=== PATIENT | male | born 1970 | race African-American/Black ===

== ENCOUNTER 2019-10-04 21:01 | Emergency (ER) | payer MEDICAID ==
[~2019-10-04] VITALS: Ht 175.3 cm; Wt 98.4 kg
[2019-10-04] MEDS ORDERED: FLUORESCEIN OPHTHALMIC 1 MG STRIP ONE ×2 (21:26→21:28)
[2019-10-04] MEDS ORDERED: PROPARACAINE OPHTH 0.5%, 15ML ONE ×2 (21:26→21:28)
[2019-10-04] MEDS ORDERED: PROPARACAINE OPHTH 0.5%, 15ML RIGHTEYE ONE (21:30)
[2019-10-04] MEDS ORDERED: FLUORESCEIN OPHTHALMIC 1 MG STRIP RIGHTEYE ONE (21:30)
[2019-10-04 22:38] VITALS: BP 115/80
== END 2019-10-04 22:54 | disposition home or self-care (01) ==
LOC: ED 21:31
DX: H10.021 Other mucopurulent conjunctivitis, right eye (principal); H54.7 Unspecified visual loss
CPT/HCPCS: 99283

== ENCOUNTER 2020-02-12 08:25 | Emergency (ER) | payer MEDICAID ==
[~2020-02-12] VITALS: Ht 175.3 cm; Wt 95.0 kg
[2020-02-12 08:32] VITALS: BP 136/84
--- NOTE | 2020-02-12 08:38 | NUR ---
[employer] [place] SUPPORT: CHART GIVEN TO PROVIDER TO GO SEE NEXT DUE TO CONCERNS OF AIRWAY. PT ABLE TO TALK IN FULL SENTENCES W/O DIFFICULTY, UVULA VISIBLY SWOLLEN, RESP EVEN AND UNLABORED, NADN.
--- NOTE | 2020-02-12 08:49 | NUR ---
PT HAS SWOLLEN UVULA AND TONSILS. AIRWAY CLEAR. ABLE TO TALK AND SWALLOW. NOT IN RESP DISTRESS. PT STATES HE HAS HAD THIS IN THE PAST. UNKNOWN IF REALTED TO FOOD ALLERGY, DID NOT EAT ANYTHING NEW. SYMPTOMS STARTED THIS AM .
[2020-02-12] MEDS ORDERED: DIPHENHYDRAMINE 25 MG CAPSULE ONE (08:58)
[2020-02-12] MEDS ORDERED: FAMOTIDINE 20 MG TABLET ONE (08:58)
[2020-02-12] MEDS ORDERED: DEXAMETHASONE 4 MG TABLET PO ONE (09:00)
[2020-02-12] MEDS ORDERED: FAMOTIDINE 20 MG TABLET PO ONE (09:00)
[2020-02-12] MEDS ORDERED: DIPHENHYDRAMINE 25 MG CAPSULE PO ONE (09:00)
[2020-02-12] MEDS ORDERED: DEXAMETHASONE 4 MG TABLET ONE (09:01)
--- NOTE | 2020-02-12 09:15 | NUR ---
MEDICATED PER ORDERS.
--- NOTE | 2020-02-12 09:47 | NUR ---
PT STATES HE IS FEELING BETTER
== END 2020-02-12 10:36 | disposition home or self-care (01) ==
LOC: ED 09:21
DX: T78.40XA Allergy, unspecified, initial encounter (principal); K12.2 Cellulitis and abscess of mouth; X58.XXXA Exposure to other specified factors, initial encounter; Y93.89 Activity, other specified; Y92.89 Other specified places as the place of occurrence of the external cause; Y99.8 Other external cause status
CPT/HCPCS: 99284; Q0163

== ENCOUNTER 2020-09-30 22:33 | Emergency (ER) | payer MEDICAID ==
[~2020-09-30] VITALS: Ht 175.3 cm; Wt 88.7 kg
[2020-09-30 23:39] LABS: HCT (SEDRATE) 48.8 % (39.2-51.8)
[2020-09-30 23:40] LABS: BASOPHILS % (AUTO) 1 % (0-1); EOSINOPHILS % (AUTO) 2 % (1-7); LYMPHOCYTES % (AUTO) 24 % (22-44); MEAN CORPUSCULAR HEMOGLOBIN 28.2 pg (27.5-34.5); MEAN CORPUSCULAR HGB CONC 33.7 g/dL (33.2-36.2); MEAN PLATELET VOLUME 7.3 fL (7.4-10.4); MONOCYTES % (AUTO) 13 % (2-9); NEUTROPHILS % (AUTO) 61 % (42-75); PLATELET COUNT 374 x10^3/uL (130-400); RED BLOOD COUNT 5.95 x10^6/uL (4.38-5.82); RED CELL DISTRIBUTION WIDTH 14.2 % (9.4-14.8)
[2020-09-30 23:52] LABS: ALBUMIN 3.6 g/dL (3.4-5.0); ANION GAP 4 mmol/L (5-15); CALCIUM 9.5 mg/dL (8.5-10.1); CHLORIDE 108 mmol/L (98-107)
[2020-09-30 23:59] LABS: ALANINE AMINOTRANSFERASE 47 U/L (12-78); ALKALINE PHOSPHATASE 322 U/L (45-117); BILIRUBIN,TOTAL 0.7 mg/dL (0.2-1.0); CREATININE 1.22 mg/dL (0.7-1.3); TOTAL PROTEIN 8.5 g/dL (6.4-8.2)
--- NOTE | 2020-10-01 00:01 | NUR ---
PT AMBULATORY FROM LOB C STEADY GAIT. HOLDING L ARM CLOSE TO BODY. CHANGING INTO GOWN.
[2020-10-01] MEDS ORDERED: KETOROLAC 30 MG/1 ML ONE (00:52)
[2020-10-01] MEDS ORDERED: HYDROmorphone 2 MG/ML, 1ML ONE (00:52)
[2020-10-01] MEDS ORDERED: HYDROmorphone 1 MG/ML, 1ML INJ IVPush PRN (01:00)
[2020-10-01] MEDS ORDERED: KETOROLAC 30 MG/1 ML IV ONE (01:00)
[2020-10-01] MEDS ORDERED: SODIUM CHLORIDE 0.9% 1,000ML IVBOLUS ONE (01:00)
--- NOTE | 2020-10-01 01:10 | NUR ---
PIV ESBT. MEDS PER MAR, & NSB INFUSING WELL. PT TO CT VIA CART.
--- NOTE | 2020-10-01 01:58 | NUR ---
REPORT GIVEN TO LISBETH APONTE
[2020-10-01 03:14] VITALS: BP 122/83
== END 2020-10-01 03:16 | disposition home or self-care (01) ==
LOC: ED 23:59
DX: L20.9 Atopic dermatitis, unspecified (principal)
CPT/HCPCS: 36415; 72125; 73030; 73200; 80053; 85025; 85651; 86140; 93005; 96361; 96374; 96375; 99285; J1170; J1885; J7030

== ENCOUNTER 2020-10-09 04:39 | Emergency (ER) | payer MEDICAID ==
[~2020-10-09] VITALS: Ht 175.3 cm; Wt 87.5 kg
[2020-10-09] MEDS ORDERED: MORPHINE SULFATE 4 MG/ML, 1ML ONE ×2 (05:20→07:36)
[2020-10-09] MEDS ORDERED: FAMOTIDINE 20 MG/2 ML ONE (05:20)
[2020-10-09] MEDS ORDERED: ONDANSETRON 2MG/ML, 2ML ONE ×2 (05:20→07:36)
[2020-10-09] MEDS ORDERED: SODIUM CHLORIDE 0.9% 1,000 ML IV ONE (05:30)
[2020-10-09] MEDS ORDERED: SODIUM CHLORIDE FLUSH 10ML SYR IVF ONE (05:30)
[2020-10-09] MEDS ORDERED: SODIUM CHLORIDE 0.9% 1,000ML IVBOLUS ONE (05:30)
[2020-10-09] MEDS ORDERED: FAMOTIDINE 20 MG/2 ML IVPush ONE (05:30)
[2020-10-09] MEDS ORDERED: ONDANSETRON 2MG/ML, 2ML IVPush ONE (05:30)
[2020-10-09] MEDS: MORPHINE SULFATE 4 MG/ML, 1ML IVPush PRN ×2 (05:33→07:38)
[2020-10-09 05:58] LABS: BASOPHILS % (AUTO) 1 % (0-1); EOSINOPHILS % (AUTO) 1 % (1-7); LYMPHOCYTES % (AUTO) 12 % (22-44); MEAN CORPUSCULAR HEMOGLOBIN 28.2 pg (27.5-34.5); MEAN CORPUSCULAR HGB CONC 34.2 g/dL (33.2-36.2); MEAN PLATELET VOLUME 7.2 fL (7.4-10.4); MONOCYTES % (AUTO) 9 % (2-9); NEUTROPHILS % (AUTO) 77 % (42-75); PLATELET COUNT 316 x10^3/uL (130-400); RED CELL DISTRIBUTION WIDTH 14.5 % (9.4-14.8)
[2020-10-09 06:00] LABS: ALANINE AMINOTRANSFERASE 21 U/L (12-78); ALBUMIN 3.1 g/dL (3.4-5.0); ANION GAP 8 mmol/L (5-15); CALCIUM 9.4 mg/dL (8.5-10.1); CHLORIDE 104 mmol/L (98-107); CREATININE 1.17 mg/dL (0.7-1.3)
[2020-10-09 06:02] LABS: ALKALINE PHOSPHATASE 157 U/L (45-117); BILIRUBIN,TOTAL 0.4 mg/dL (0.2-1.0); TOTAL PROTEIN 7.2 g/dL (6.4-8.2)
[2020-10-09 06:02] LABS: MICROSCOPIC INDICATED
[2020-10-09] MEDS ORDERED: OMNIPAQUE 350 MG/ML, 100ML BOTTLE ONE (06:15)
--- NOTE | 2020-10-09 06:48 | NUR ---
REPORT FROM SHAWNA, ASSUME CARE OF PT AT THIS TIME. PT IN CT.
--- NOTE | 2020-10-09 07:21 | NUR ---
CT RESULTS BACK, PT FOR RECHECK
[2020-10-09] MEDS ORDERED: MAALOX/HYOSCYAMINE/LIDOCAINE 45 ML BTL ONE (07:36)
[2020-10-09 07:44] VITALS: BP 104/62
--- NOTE | 2020-10-09 07:44 | NUR ---
PT MEDICATED FOR 8/10 PERIUMBILICAL ABD PAIN AND NAUSEA. ERP IN TO REASSESS.
[2020-10-09] MEDS ORDERED: MAALOX/HYOSCYAMINE/LIDOCAINE 45 ML BTL PO ONE (08:00)
== END 2020-10-09 08:03 | disposition home or self-care (01) ==
LOC: ED 05:43
DX: K29.00 Acute gastritis without bleeding (principal); R10.84 Generalized abdominal pain; R11.2 Nausea with vomiting, unspecified
CPT/HCPCS: 36415; 74177; 80053; 81001; 83690; 85025; 96361; 96374; 96375; 96376; 99285; J2270; J2405; J7030; Q9967

== ENCOUNTER 2020-10-12 17:27 | Emergency (ER) | payer MEDICAID ==
[~2020-10-12] VITALS: Ht 175.3 cm; Wt 88.3 kg
[2020-10-12 17:39] VITALS: BP 131/85
[2020-10-12 18:54] LABS: BASOPHILS % (AUTO) 0 % (0-1); EOSINOPHILS % (AUTO) 3 % (1-7); LYMPHOCYTES % (AUTO) 18 % (22-44); MEAN CORPUSCULAR HEMOGLOBIN 28.2 pg (27.5-34.5); MEAN CORPUSCULAR HGB CONC 33.3 g/dL (33.2-36.2); MEAN PLATELET VOLUME 7.2 fL (7.4-10.4); MONOCYTES % (AUTO) 15 % (2-9); NEUTROPHILS % (AUTO) 64 % (42-75); PLATELET COUNT 315 x10^3/uL (130-400); RED BLOOD COUNT 5.39 x10^6/uL (4.38-5.82); RED CELL DISTRIBUTION WIDTH 14.8 % (9.4-14.8)
[2020-10-12 19:02] LABS: ALANINE AMINOTRANSFERASE 19 U/L (12-78); ANION GAP 5 mmol/L (5-15); CALCIUM 8.7 mg/dL (8.5-10.1); CHLORIDE 104 mmol/L (98-107)
[2020-10-12 19:04] LABS: CREATININE 1.24 mg/dL (0.7-1.3)
[2020-10-12 19:05] LABS: ALKALINE PHOSPHATASE 141 U/L (45-117); BILIRUBIN,TOTAL 0.4 mg/dL (0.2-1.0); TOTAL PROTEIN 7.5 g/dL (6.4-8.2)
--- NOTE | 2020-10-12 20:07 | NUR ---
Pt c/o generalized abdominal pain w/ associated nausea and vomiting onset 1pm. Hx of same, however, pt states does not follow up with GI doctor or does he have any current GI diagnoses. Pt last PO intake around 1pm. Pt alert and oriented x4, in no acute distress. Lying on gurney. Ambulated to room from triage bay.
[2020-10-12] MEDS ORDERED: MAALOX/HYOSCYAMINE/LIDOCAINE 45 ML BTL ONE (20:25)
--- NOTE | 2020-10-12 20:27 | NUR ---
Made pt aware that he needs to provide urine sample. Pt states "I cant anytime soon." Will continue to encourage.
[2020-10-12] MEDS ORDERED: MAALOX/HYOSCYAMINE/LIDOCAINE 45 ML BTL PO ONE (20:30)
--- NOTE | 2020-10-12 21:26 | NUR ---
Pt feels remarkably better. Ready to be discahrged. Updated Dr. Young [id number]. Pt to be dsicharged shortly.
--- NOTE | 2020-10-12 22:04 | NUR ---
Patient/Caregiver given discharge instructions and they have confirmed that they understand the instructions. Patient ambulatory with steady gait. NAD, all questions answered appropriately, denies additional needs at this time. No personal belongings left in room after discharge.
== END 2020-10-12 22:06 | disposition home or self-care (01) ==
LOC: ED 21:06
DX: R10.13 Epigastric pain (principal); R11.2 Nausea with vomiting, unspecified; F17.200 Nicotine dependence, unspecified, uncomplicated
CPT/HCPCS: 36415; 76705; 80053; 83690; 85025; 99284